=== PATIENT | male | born 1975 | race Two or more races ===

== ENCOUNTER 2016-07-05 08:04 | Emergency (ER) | payer SELFPAY ==
[~2016-07-05] VITALS: Ht 172.7 cm; Wt 81.6 kg
[2016-07-05] MEDS ORDERED: PRED-220 PO (08:50)
[2016-07-05] MEDS ORDERED: ACYC800T PO (08:50)
--- NOTE | 2016-07-05 08:50 | PHYS DOC ---
Past Medical History Past Medical History: Hypothyroid Past Surgical History: Other Additional Past Surgical Histo: CYST REMOVED RT COLLAR BONE Alcohol Use: Rarely Drug Use: Marijuana Adult General Chief Complaint Chief Complaint: FACE PROBLEM [facility] HPI Patient is a 40 year old male presents with complaint of left facial droop and altered sensation to the left side of his face that began yesterday. Patient also states that approximately 2 days prior to that, he felt some fullness around his left ear. He denies any tinnitus or ear pain. Patient denies any preceding illness such as cough or congestion, fevers or chills. Patient denies any history of neuromuscular diseases. He denies any history of brain injuries or skull fractures, brain bleeds, strokes or mini strokes. He denies any history of neuromuscular diseases. Patient reports that he is right-hand dominant. Review of Systems Review of Systems Constitutional: Denies fever or chills [] Eyes: Denies change in visual acuity, redness, or eye pain [] HENT: Denies nasal congestion or sore throat [] Respiratory: Denies cough or shortness of breath [] Cardiovascular: No additional information not addressed in HPI [] GI: Denies abdominal pain, nausea, vomiting, bloody stools or diarrhea [] : Denies dysuria or hematuria [] Musculoskeletal: Denies back pain or joint pain [] Integument: Denies rash or skin lesions [] Neurologic: Denies headache, focal weakness or sensory changes [] Endocrine: Denies polyuria or polydipsia [] Allergies Allergies Allergies Coded Allergies Type Severity Reaction Last Updated Verified No Known Drug Allergies 03/30/14 No Physical Exam Physical Exam Constitutional: Well developed, well nourished, no acute distress, non-toxic appearance. [] HENT: Normocephalic, atraumatic, bilateral external ears normal, oropharynx moist, no oral exudates, nose normal. Eyes: PERRLA, EOMI, conjunctiva normal, no discharge. [] Neck: Normal range of motion, no tenderness, supple, no stridor. [] Cardiovascular:Heart rate regular rhythm, no murmur [] Lungs & Thorax: Bilateral breath sounds clear to auscultation [] Abdomen: Bowel sounds normal, soft, no tenderness, no masses, no pulsatile masses. [] Skin: Warm, dry, no erythema, no rash. [] Back: No tenderness, no CVA tenderness. [] Extremities: No tenderness, no cyanosis, no clubbing, ROM intact, no edema. [] Neurologic: Alert and oriented X 3, left facial droop that involves the left forehead and eyebrow. Patient's left eye does not fully close. Obvious droop to the left side of patient's mouth and cheek. Patient responds spontaneously and appropriately to questions. Patient is able perform rapid alternating movements and [id number] without difficulty. Romberg is negative for pronator drift. Patient ambulates with a steady, unaided gait. Psychologic: Affect normal, judgement normal, mood normal. [] Current Patient Data Vital Signs Vital Signs Date Time Temp Pulse Resp B/P Pulse Ox O2 Delivery O2 Flow Rate FiO2 07/05/16 08:11 97.6 78 14 116/73 97 Room Air 97.6 EKG EKG [] Radiology/Procedures Radiology/Procedures [] Course & Med Decision Making Course & Med Decision Making Patient is classic signs and symptoms of Santiago's palsy. He is not altered. He has no other evidence of neuromuscular defects/disorders. Patient verbalizes understanding of this. I will provide him discharge instructions for neurology and a family care packet. I will start him on acyclovir as he is currently uninsured and Valtrex will be cost prohibitive. We'll also place patient on a tapering dose of prednisone. Ron Disclaimer Ron Disclaimer This electronic medical record was generated, in whole or in part, using a voice recognition dictation system. Departure Departure Impression: Primary Impression: Santiago's palsy Disposition: 01 HOME, SELF-CARE Condition: GOOD Referrals: UNKNOWN PCP NAME (PCP) Patient Instructions: Santiago's Palsy-Brief Additional Instructions: 1. Take the medication as prescribed. Be sure to use artificial tears in your left eye and tape your left eye shut at bedtime. 2. Review the discharge instructions provided for self-care and reasons to return to the emergency department. 3. Use the resource packet provided for assistance in finding a primary care doctor to address your medical concerns and establish primary care. 4. Call the neurologist number listed for follow-up if there are any questions or concerns. Scripts Prednisone 10 Mg [id number] Mg PO UD PREDNISONE TAPER #39 TAB Ref 0 Take 3 tablets by mouth twice a day for 3 days, then take 2 tablets by mouth twice a day for 3 days, then take 1 tablet by mouth twice a day for 3 days, then take 1 tablet by mouth daily x 3 days, then stop. Prov:GERMANIA BURROUGHS 07/05/16 Acyclovir 800 Mg Tablet1 Tab PO 5XDAY #50 TAB Prov:GERMANIA BURROUGHS 07/05/16 GERMANIA BURROUGHS Jul 05, 2016 08:50
[2016-07-05 09:09] VITALS: BP 112/71
== END 2016-07-05 09:58 | disposition home or self-care (01) ==
LOC: ER 08:04
DX: G51.0 Bell's palsy (principal); E03.9 Hypothyroidism, unspecified; F12.10 Cannabis abuse, uncomplicated
CPT/HCPCS: 99283

== ENCOUNTER 2017-04-15 11:04 | Emergency (ER) | payer SELFPAY ==
[~2017-04-15] VITALS: Ht 170.2 cm; Wt 81.2 kg
[~2017-04-15 11:04] MED LIST: ACYC800T PO; PRED-220 PO
[2017-04-15 11:25] LABS: BILIRUBIN,URINE NEGATIVE (NEG); GLUCOSE,URINE NEGATIVE (NEG); NITRITE,URINE NEGATIVE (NEG); PROTEIN,URINE NEGATIVE (NEG-TRACE); UROBILINOGEN,URINE 0.2 mg/dL (0.2 mg/dL)
[2017-04-15 11:25] LABS: HEMATOCRIT 49.7 % (39.0-53.0); RED BLOOD COUNT 5.32 x10^6/uL (4.30-5.70); RED CELL DISTRIBUTION WIDTH 12.5 % (11.5-14.5); WHITE BLOOD COUNT 13.7 x10^3/uL (4.0-11.0)
[2017-04-15] MEDS ORDERED: MORPHINE SULFATE 2 MG/ML DISP.SYRIN. IV ONE (11:30)
[2017-04-15] MEDS ORDERED: diphenhydrAMINE 50 MG/ML VIAL IVP ONE (11:30)
[2017-04-15] MEDS ORDERED: METOCLOPRAMIDE HCL 10 MG/2 ML VIAL. IV ONE (11:30)
[2017-04-15] MEDS ORDERED: IV NORMAL SALINE 1000ML BAG 1,000 ML IV ONE (11:30)
[2017-04-15 11:38] LABS: BACTERIA,URINE FEW /HPF (0-FEW); RBC,URINE RARE /HPF (0-2); SQUAMOUS EPITHELIAL CELL,UR OCC /LPF; WBC,URINE RARE /HPF (0-4)
[2017-04-15 11:39] LABS: CALCIUM 9.3 mg/dL (8.5-10.1); CREATININE 1.3 mg/dL (0.7-1.3); GFR 61.1; POTASSIUM 3.8 mmol/L (3.5-5.1)
[2017-04-15 11:47] LABS: ALBUMIN 4.5 g/dL (3.4-5.0); ALBUMIN/GLOBULIN RATIO 1.2 (1.0-1.7); TOTAL BILIRUBIN 0.5 mg/dL (0.2-1.0); TOTAL PROTEIN 8.2 g/dL (6.4-8.2)
[2017-04-15] MEDS ORDERED: ONDA4TAB10 SL (12:43)
--- NOTE | 2017-04-15 12:43 | PHYS DOC ---
Past Medical History Past Medical History: Hypothyroid Past Surgical History: Other Additional Past Surgical Histo: CYST REMOVED RT COLLAR BONE Alcohol Use: Rarely Drug Use: None Adult General Chief Complaint Chief Complaint: ABDOMINAL PAIN HPI HPI Patient is a 41 year old male presents the ED complaining of nausea and vomiting times one day. States last night for dinner they cooked and ate pork and his whole family has been sick ever since eating it. States same symptoms in the past with previous episodes of food poisoning. States he has vomited over 10 times. Denies abdominal pain, dizziness, weakness, fever, shortness of breath, chest pain, diarrhea or blood in stool. Review of Systems Review of Systems Constitutional: Denies fever or chills [] Eyes: Denies change in visual acuity, redness, or eye pain [] HENT: Denies nasal congestion or sore throat [] Respiratory: Denies cough or shortness of breath [] Cardiovascular: No additional information not addressed in HPI [] GI: Complains of nausea and vomiting. Denies abdominal pain, bloody stools or diarrhea [] : Denies dysuria or hematuria [] Musculoskeletal: Denies back pain or joint pain [] Integument: Denies rash or skin lesions [] Neurologic: Denies headache, focal weakness or sensory changes [] Endocrine: Denies polyuria or polydipsia [] All other systems were reviewed and found to be within normal limits, except as documented in this note. Current Medications Current Medications Current Medications Medications (Trade) Dose Ordered Sig/Alma Start Time Stop Time Status Last Admin Dose Admin Diphenhydramine HCl (Benadryl) 25 mg 1X ONCE 04/15/17 11:30 04/15/17 11:31 DC 04/15/17 11:28 25 MG Metoclopramide HCl (Reglan Vial) 10 mg 1X ONCE 04/15/17 11:30 04/15/17 11:31 DC 04/15/17 11:27 10 MG Morphine Sulfate 2 mg 1X ONCE 04/15/17 11:30 04/15/17 11:31 DC 04/15/17 11:27 2 MG Ondansetron HCl (Zofran Odt) 4 mg 1X ONCE 04/15/17 12:45 04/15/17 12:46 DC 04/15/17 13:12 4 MG Sodium Chloride 1,000 ml @ 1,000 mls/hr 1X ONCE 04/15/17 11:30 04/15/17 12:29 DC 04/15/17 11:27 1,000 MLS/HR Allergies Allergies Allergies Coded Allergies Type Severity Reaction Last Updated Verified No Known Drug Allergies 03/30/14 No Physical Exam Physical Exam Constitutional: Well developed, well nourished, no acute distress, non-toxic appearance. [] HENT: Normocephalic, atraumatic, bilateral external ears normal, oropharynx moist, no oral exudates, nose normal. [] Eyes: PERRLA, EOMI, conjunctiva normal, no discharge. [] Neck: Normal range of motion, no tenderness, supple, no stridor. [] Cardiovascular:Heart rate regular rhythm, no murmur [] Lungs & Thorax: Bilateral breath sounds clear to auscultation [] Abdomen: Bowel sounds normal, soft, no tenderness, no masses, no pulsatile masses. [] Skin: Warm, dry, no erythema, no rash. [] Back: No tenderness, no CVA tenderness. [] Extremities: No tenderness, no cyanosis, no clubbing, ROM intact, no edema. [] Neurologic: Alert and oriented X 3, normal motor function, normal sensory function, no focal deficits noted. [] Psychologic: Affect normal, judgement normal, mood normal. [] Current Patient Data Vital Signs Vital Signs Date Time Temp Pulse Resp B/P (MAP) Pulse Ox O2 Delivery O2 Flow Rate FiO2 04/15/17 13:09 94 16 99/56 (70) 98 Room Air 04/15/17 11:10 98.0 98.0 Lab Values Laboratory Tests Test 04/15/17 11:07 04/15/17 11:14 Urine Collection Type Void Urine Color Yellow Urine Clarity Clear Urine pH 6.0 Urine Specific [place] >=1.030 Urine Protein Negative mg/dL (NEG-TRACE) Urine Glucose (UA) Negative mg/dL (NEG) Urine Ketones (Stick) Trace mg/dL (NEG) Urine Blood Negative (NEG) Urine Nitrite Negative (NEG) Urine Bilirubin Negative (NEG) Urine Urobilinogen Dipstick 0.2 mg/dL (0.2 mg/dL) Urine Leukocyte Esterase Negative (NEG) Urine RBC Rare /HPF (0-2) Urine WBC Rare /HPF (0-4) Urine Squamous Epithelial Cells Occ /LPF Urine Bacteria Few /HPF (0-FEW) Urine Mucus Slight /LPF White Blood Count 13.7 x10^3/uL (4.0-11.0) H Red Blood Count 5.32 x10^6/uL (4.30-5.70) Hemoglobin 17.0 g/dL (13.0-17.5) Hematocrit 49.7 % (39.0-53.0) Mean Corpuscular Volume 93 fL (79-100) Mean Corpuscular Hemoglobin 32 pg (25-35) Mean Corpuscular Hemoglobin Concent 34 g/dL (31-37) Red Cell Distribution Width 12.5 % (11.5-14.5) Platelet Count 287 x10^3/uL (140-400) Sodium Level 137 mmol/L (136-145) Potassium Level 3.8 mmol/L (3.5-5.1) Chloride Level 102 mmol/L (98-107) Carbon Dioxide Level 26 mmol/L (21-32) Anion Gap 9 (6-14) Blood Urea Nitrogen 19 mg/dL (8-26) Creatinine 1.3 mg/dL (0.7-1.3) Estimated GFR (Cockcroft-Gault) 61.1 BUN/Creatinine Ratio 15 (6-20) Glucose Level 107 mg/dL (70-99) H Calcium Level 9.3 mg/dL (8.5-10.1) Total Bilirubin 0.5 mg/dL (0.2-1.0) Aspartate Amino Transferase (AST) 13 U/L (15-37) L Alanine Aminotransferase (ALT) 24 U/L (16-63) Alkaline Phosphatase 71 U/L (46-116) Total Protein 8.2 g/dL (6.4-8.2) Albumin 4.5 g/dL (3.4-5.0) Albumin/Globulin Ratio 1.2 (1.0-1.7) Lipase 318 U/L (73-393) Laboratory Tests 04/15/17 11:14 Laboratory Tests 04/15/17 11:14 EKG EKG [] Radiology/Procedures Radiology/Procedures [] Course & Med Decision Making Course & Med Decision Making Pertinent Labs and Imaging studies reviewed. (See chart for details) []Reviewed labs with patient. Patient states he is feeling much better. Patient no longer vomiting in ED. Vital stable, no acute distress. On reexamination, abdomen is soft nontender nondistended. No peritoneal signs. Patient tolerating by mouth. Patient states he is feeling much better and wants to go home rather than being admitted. Requesting prescription for Zofran outpatient. Will prescribe Zofran. Discussed follow-up with PCP early this week. Discussed reasons to return to the ED. Patient understands and agrees with plan. Dragon Disclaimer Dragon Disclaimer This electronic medical record was generated, in whole or in part, using a voice recognition dictation system. Departure Departure Impression: Primary Impression: Nausea and vomiting Disposition: HOME, SELF-CARE Condition: IMPROVED Referrals: JUDY PLUMMER (PCP) DIDI LANGE MD Patient Instructions: Nausea and Vomiting Scripts Ondansetron (ZOFRAN ODT) 4 Mg Tab.rapdis 1 TAB SL Q8HRS, #10 TAB Prov: EVELYN ELIAS 04/15/17 EVELYN ELIAS Apr 15, 2017 12:43
[2017-04-15] MEDS ORDERED: ONDANSETRON ODT 4 MG TAB.RAPDIS. PO ONE (12:45)
[2017-04-15 13:09] VITALS: BP 99/56
== END 2017-04-15 13:14 | disposition home or self-care (01) ==
LOC: ER 11:04
DX: R11.2 Nausea with vomiting, unspecified (principal); E03.9 Hypothyroidism, unspecified
CPT/HCPCS: 36415; 80053; 81001; 83690; 85027; 96361; 96374; 96375; 99284; J1200; J2270; J2765; J7030; Q0162